=== PATIENT | female | born 1985 | race Caucasian/White ===

== ENCOUNTER 2018-06-11 10:35 | Emergency (ER) | payer SELFPAY ==
[~2018-06-11] VITALS: Ht 162.6 cm; Wt 55.0 kg
[2018-06-11] MEDS ORDERED: DIVA125T2 PO (10:39)
[2018-06-11] MEDS ORDERED: ACETAMINOPHEN 325MG TABLET PO ONE (11:00)
[2018-06-11] MEDS ORDERED: LIDOCAINE 1%/EPI 1:100,000 10 ML VIAL IJ ONE (11:00)
[2018-06-11] MEDS ORDERED: TETANUS, DIPHTHERIA, PERTUSSIS VAC/PF 0.5ML (>7YR OLD) IM ONE (11:00)
[2018-06-11 11:21] LABS: BASOPHILS % 0.4 % (0.0-2.0); EOSINOPHILS % 1.2 % (0.0-5.0); HEMATOCRIT. 37.9 % (36.0-48.0); HEMOGLOBIN. 12.2 g/dL (12.0-16.0); LYMPHOCYTES % 42.3 % (20.0-50.0); MEAN CORPUSCULAR HEMOGLOBIN 27.8 pg (28.0-32.0); MEAN CORPUSCULAR VOLUME 86.5 fL (81.0-99.0); MEAN PLATELET VOLUME 10.4 fl (7.4-10.4); NEUTROPHILS % 51.1 % (40.0-76.0); PLATELET 177 x1000/uL (130-400); RED BLOOD CELL COUNT 4.38 mill/uL (4.2-5.4); RED CELL DISTRIBUTION WIDTH 15.1 % (11.6-14.6)
[2018-06-11 11:32] LABS: CHLORIDE 107 mEq/L (98-107)
[2018-06-11 11:36] LABS: HCG SCREEN NEGATIVE
[2018-06-11 11:43] LABS: VALPROIC ACID < 3.0 ug/mL (50-100)
[2018-06-11 13:00] VITALS: BP 103/63
== END 2018-06-11 13:34 | disposition home or self-care (01) ==
LOC: ER 10:35
DX: G40.909 Epilepsy, unspecified, not intractable, without status epilepticus (principal); S01.511A Laceration without foreign body of lip, initial encounter; X58.XXXA Exposure to other specified factors, initial encounter; Y93.89 Activity, other specified; Y92.018 Other place in single-family (private) house as the place of occurrence of the external cause
CPT/HCPCS: 36415; 80053; 80165; 84703; 85025; 90471; 90715; 99284; J3490